=== PATIENT | female | born 1950 | race Caucasian/White ===

== ENCOUNTER 2018-05-11 08:35 | Emergency (ER) | payer MEDICARE, OTHER ==
[2018-05-11 09:10] LABS: Bilirubin Negative (Negative); Blood, Urine Large (Negative); Clarity CLEAR (Clear); Glucose, Urine (Dipstick) Negative (Negative); Leukocyte Moderate (Negative); Nitrite Negative (Negative); Protein, Urine (Dipstick) Trace mg/dL (Neg-Trace); Specific Gravity, Urine 1.005 (1.002-1.036); Urobilinogen 0.2 mg/dL (0.2-1.0)
[2018-05-11 09:12] LABS: Bacteria/HPF None Seen HPF (None Seen); Hyaline Casts/LPF 0-3 HYALINE CAST LPF (0-3 Hyaline); Pathc Cast-AUWi Flag 0.29 (0-2.49); Squamous Epithelial None Seen HPF (0-3)
[2018-05-11] MEDS ORDERED: Phenazopyridine HCl 97.5 MG TABLET PO ONE (09:15)
[2018-05-11 09:24] LABS: Yeast-AUWi Flag 92.3 (0-25.0)
[2018-05-11 09:33] LABS: Yeast-All Forms None Seen HPF (None Seen)
[2018-05-11] MEDS ORDERED: Cephalexin 250 MG CAP ONE (09:46)
== END 2018-05-11 09:48 | disposition home or self-care (01) ==
LOC: EDBD 08:35 → ERS 08:35
DX: N39.0 Urinary tract infection, site not specified (principal); M19.90 Unspecified osteoarthritis, unspecified site; Z79.899 Other long term (current) drug therapy
CPT/HCPCS: 81003; 81015; 87077; 87086; 87186; 99283

== ENCOUNTER → 2018-11-25 | Day surgery (SDC) | payer MEDICARE, OTHER ==
[~2018-11-25] MED LIST: Heparin 1,000 UNITS/ML VIAL ONE
--- NOTE | 2018-11-25 13:40 | SPC ---
LEFT UPPER EXTREMITY PICC LINE WITH ULTRASOUND GUIDANCE: HISTORY: Osteomyelitis of the sacrum. IV antibiotics are required. COMPARISON: None. EXPOSURE: 0.2 minutes 285 mGy per cm2. FINDINGS: Technically successful left upper extremity PICC line placement with ultrasound guidance. Single lum en 42 cm PICC with the distal tip in the SVC/RA junction. TECHNIQUE: Consent obtained to perform an ultrasound-guided PICC of the left upper extremity. The left arm was prepped and draped in the sterile fashion, and 1% Lidocaine, buffered with sodium bicarbonate, was us ed for local anesthesia. Under ultrasound guidance, a micropuncture needle was used to cannulate the basilic vein. A 0.018 guidewire was advanced through the needle, to the level of the superior vena cava. Confirmation that the wire was in the venous system was performed. Dilatation was performed. The catheter flushed and aspirated without difficulty. IMPRESSION: Successful left upper extremity peripherally inserted central catheter line placement with ultrasound guidance. POS: IVELISSE
== END ==
LOC: SPEC 08:14
PROVIDERS: ATTEND Internal Medicine Infectious Disease
PROC: 02HV33Z Insertion of Infusion Device into Superior Vena Cava, Percutaneous Approach (ICD-10-PCS; principal; 2018-11-25)
DX: M86.8X8 Other osteomyelitis, other site (principal)
CPT/HCPCS: 36569; C1751; J1644